=== PATIENT | female | born 1980 | race Hispanic/Latino ===

== ENCOUNTER 2018-05-31 09:51 | Emergency (ER) | payer SELFPAY ==
[~2018-05-31] VITALS: Ht 167.6 cm; Wt 145.6 kg
--- OUTSIDE RECORDS SUMMARY | 2018-05-31 09:55 | XMS REPORT ---
Author Author [facility] Address Unknown Phone Unavailable Care Team Providers Care Lead Shop Operator Name Role Phone Unavailable Unavailable Payers Payer Name Policy Type Policy Number Effective Date Expiration Date Problems This patient has no known problems. Allergies, Adverse Reactions, Alerts Allergy Name Allergy Type Status Severity Reaction(s) Onset Date Inactive Date Treating Clinician Comments No Known Allergies DA Active U 2017-12-17 00:00:00 No Known Allergies DA Active U 2015-09-02 00:00:00 Medications This patient has no known medications.
== END 2018-05-31 11:48 | disposition home or self-care (01) ==
LOC: ER 09:51
DX: J30.1 Allergic rhinitis due to pollen (principal); J30.2 Other seasonal allergic rhinitis; I10 Essential (primary) hypertension; E11.9 Type 2 diabetes mellitus without complications; E78.5 Hyperlipidemia, unspecified; E66.9 Obesity, unspecified
CPT/HCPCS: 93005; 99283

== ENCOUNTER 2019-10-21 18:25 | Emergency (ER) | payer OTHER ==
[~2019-10-21] VITALS: Ht 167.6 cm; Wt 145.6 kg
--- OUTSIDE RECORDS SUMMARY | 2019-10-21 18:52 | XMS REPORT | Continuity of Care Document ---
Author Author [facility] t Organization [facility] Address [address] [place] [address] Phone Unavailable Care Team Providers Care Management Internship Name Role Phone NO, PCP PCP Unavailable Payers Payer Name Policy Type Policy Number Effective Date Expiration Date S ource Problems This patient has no known problems. Allergies, Adverse Reactions, Alerts Allergy Name Allergy Type Status Severity Reaction(s) Onset Date Inacti ve Date Treating Clinician Comments Source Morphine Allergy to Substance Active 2018-05-31 00:00:00 [facility] No Known Allergies DA Active U 2017-12-17 00:00:00 [facility] No Known Allergies DA Active U 2015-09-02 00:00:00 [facility] Medications This patient has no known medications. Procedures This patient has no known procedures. Encounters Start Date/Time End Date/Time Encounter Type [facility] ID Source 2018-09-11 12:27:00 2018-09-11 12:27:00 Emergency E SE [id number] 2018-05-31 09:51:00 2018-05-31 11:48:00 Departed Emergency Room [facility] [id number] [facility] Results Test Description Test Time Test Comments Results Result Comments Source SCR MAMM BILATERAL CAD DIGITAL 2019-05-04 14:49:15 - SCR MAMM BILATERAL CAD DIGITALBILATERAL DIGITAL SCREENING MAMMOGRAM WITH CAD: 05/03/2019CLINICAL: Asymptomatic. Current mammographic images were evaluated by either a [employer] M- Vu or a [employer] ImageChecker CAD (computer aided detection system). No prior exams were available for comparison. There are scattered fibroglandular tissues in both breasts. No suspicious mass, architectural distortion, malignant type calcification, or lymph node abnormality detected. IMPRESSION: NEGATIVEThere is no mammographic evidence of malignancy. Follow-up with ACR guidelines. Dion Muñoz M.D. ss/:05/04/2019 14:49:15 Manager Nicu: Christine Knapp FW, [facility]-FWletter sent: BIRADS 1-2 Normal Mammogram BI-RADS: 1 Negative - DUP VEIN UNI/LTD 2018-08-12 17:28:00 Name: ABHAY ESPOSITO [facility] : 1980 Age/S: 38 / F [address] [place], [place] [address]vd Unit #: [id number] Loc: [place] [address] Phys: Ese Lees NP Acct: [id number] Dis Date: Status: REG ER PHONE #: [phone] Exam Date: 08/12/2018 172 FAX #: [phone] Reason: LLE pain, r/o DVT EXAMS: CPT CODE: [id number] DUP VEIN UNI/LTD [id number] PROCEDURE: LEFT UNILATERAL LOWER EXTREMITY VENOUS ULTRASOUND INDICATION: Acute left leg pain. COMPARISON: None. TECHNIQUE: Sonographic evaluation of the left lower extremity veins was performed using high resolution B-mode, pulse and color Doppler imaging. The stripper black and white describes the study is limited due to body habitus. FINDINGS: The common femoral, femoral, popliteal and visualized calf veins are patent. Normal venous waveforms. The saphenofemoral junction is unremarkable. IMPRESSION: 1. No deep venous thrombosis in the left leg. SL:01 at 1728 Reported and signed by: Max Sylvester M.D. CC: Ese Lees NP Technologist: Emilia Brown RDMS() Trnscb Date/Time: 08/12/2018 (172) Janell Orig Print D/T: S: 08/12/2018 (173) Probe: PAGE 1 Signed Report URINALYSIS COMPLETE 2018-08-12 17:09:00 Test Item UA COLOR (test code = COLU) DARK YELLOW YEL/STRAW UA APPEARANCE (test code = APPU) HAZY CLEAR A UA GLUCOSE DIPSTICK (test code = DGLUU) NEGATIVE NEGATIVE UA BILIRUBIN DIPSTICK (test code = BILU) 1+ NEGATIVE A UA KETONE DIPSTICK (test code = KETU) 1+ NEGATIVE A UA SPECIFIC GRAVITY (test code = SGU) 1.025 1.005-1.030 N UA BLOOD DIPSTICK (test code = MARCOS) 5+ NEGATIVE UA PH DIPSTICK (test code = VIV) 6.0 5.0-7.0 N UA PROTEIN DIPSTICK (test code = PROU) 2+ NEGATIVE A UA UROBILINIOGEN DIPSTICK (test code = URO) 2.0 mg/dL 0.2-1.0 A UA NITRITE DIPSTICK (test code = BRUNA) NEGATIVE NEGATIVE UA LEUKOCYTE ESTERASE DIPSTICK (test code = LEUU) 1+ NEGA TIVE A UA WBC (test code = WBCU) 4-9 WBC/HPF 0-3 A UA RBC (test code = RBCU) >50 RBC/HPF 0-3 A UA BACTERIA (test code = BACU) NONE SEEN /HPF NONE SEEN UA SQUAMOUS CELLS (test code = SQU) 6-10 /HPF NONE SEEN A UA MUCUS (test code = MUCU) 1+ /LPF NONE SEEN UR HCG [id number] 17:03:00* Test Item Value Reference Range Interpretation Comments UR HCG QUAL (test code = HCGQLU) NEGATIVE NEGATIVE URINALYSIS [id number] 17:02:00* Test Item Value Reference Range Interpretation Comments UA COLOR (test code = COLU) DARK YELLOW YEL/STRAW UA APPEARANCE (test code = APPU) HAZY CLEAR A UA GLUCOSE DIPSTICK (test code = DGLUU) NEGATIVE NEGATIVE UA BILIRUBIN DIPSTICK (test code = BILU) 1+ NEGATIVE A UA KETONE DIPSTICK (test code = KETU) 1+ NEGATIVE A UA SPECIFIC GRAVITY (test code = SGU) 1.025 1.005-1.030 N UA BLOOD DIPSTICK (test code = MARCOS) 5+ NEGATIVE UA PH DIPSTICK (test code = VIV) 6.0 5.0-7.0 N UA PROTEIN DIPSTICK (test code = PROU) 2+ NEGATIVE A UA UROBILINIOGEN DIPSTICK (test code = URO) 2.0 mg/dL 0.2-1.0 A UA NITRITE DIPSTICK (test code = BRUNA) NEGATIVE NEGATIVE UA LEUKOCYTE ESTERASE DIPSTICK (test code = LEUU) 1+ NEGA TIVE A UA WBC (test code = WBCU) WBC/HPF 0-3 UA RBC (test code = RBCU) RBC/HPF 0-3
[2019-10-21 19:30] LABS: CLARITY,URINE SL CLOUDY (CLEAR); COLOR,URINE YELLOW (YELLOW); KETONES,URINE NEGATIVE (NEGATIVE); LEUKOCYTE ESTERASE ,URINE NEGATIVE (NEGATIVE); NITRITE,URINE NEGATIVE (NEGATIVE); PROTEIN,URINE DIPSTICK NEGATIVE (NEGATIVE); URINE UROBILINOGEN 0.2 mg/dL (0.2 - 1)
[2019-10-21 19:34] LABS: AMORPHOUS SEDIMENT,URINE MODERATE (FEW); BACTERIA,URINE FEW /HPF; BILIRUBIN,URINE NEGATIVE (NEGATIVE); EPITHELIAL CELLS,URINE MODERATE /LPF; RBC,URINE 0-5 /HPF (0-5); WBC,URINE (MAN) 0-5 /HPF (0-5)
--- NOTE | 2019-10-21 21:05 | Emergency Department Note ---
History of Present Illnes History of Present Illness Chief Complaint: Abdominal Complaints History of Present Illness This is a 39 year old female lower abd pain with blood in urine x 1 month treated for uti finished abx still c/o pain told she needed to follow up with obgyn but not able to get in . Historian: Patient Arrival Mode: Car Onset (how long ago): month(s) (1) Location: LOWER ABD Quality: PAIN, BLOOD IN URINE Radiation: Reports non-radiation Severity: moderate Onset quality: gradual Duration (how long): week(s) (4) Timing of current episode: constant Progression: unchanged Context: Reports recent illness (STATE WAS TREATED FOR A UTI ONE MONTH AGO BUT STILL HAS SYMPTOMS) Relieving factors: none Exacerbating factors: none Associated symptoms: Reports denies other symptoms Treatments prior to arrival: none Past Medical/Family History Physician Review I have reviewed the patient's past medical and family history. Any updates have been documented here. Past Medical History Recent Fever: No Clinical Suspicion of Infectio: No New/Unexplained Change in Ment: No Past Medical History: Hypertension, Diabetes, UTI's, Hyperlipedemia Past Surgical History: Tubal Ligation, Other Surgery: 3 C-SECTIONS Social History Smoking Cessation: Never Smoker Counseling Performed: No Alcohol Use: None Any Illegal Drug Use: No Physically hurt or threatened: No Other Last Tetanus: UNKNOWN Any Pre-Existing Lines (PICC,: No Review of Systems Review of Systems Constitutional: Reports no symptoms EENTM: Reports no symptoms Cardiovascular: Reports no symptoms Respiratory: Reports no symptoms Gastrointestinal: Reports as per HPI Genitourinary: Reports as per HPI Musculoskeletal: Reports no symptoms Integumentary: Reports no symptoms Neurological: Reports no symptoms Psychological: Reports no symptoms Endocrine: Reports no symptoms Hematological/Lymphatic: Reports no symptoms Physical Exam Related Data Allergies: Coded Allergies: morphine (Verified Allergy, Unknown, 05/31/18) Triage Vital Signs Vital Signs Date Time Temp Pulse Resp B/P (MAP) Pulse Ox O2 Delivery O2 Flow Rate FiO2 10/21/19 18:38 98.8 86 18 137/84 100 Room Air Vital signs reviewed: Yes Physical Exam CONSTITUTIONAL Constitutional: Present well-developed, Present well-nourished; Absent distressed HENT HENT: Present normocephalic, Present atraumatic, Present oropharynx clear/moist, Present nose normal HENT L/R: Present left ext ear normal, Present right ext ear normal EYES Eyes: Reports PERRL, Reports conjunctivae normal NECK Neck: Present ROM normal PULMONARY Pulmonary: Present effort normal, Present breath sounds normal CARDIOVASCULAR Cardiovascular: Present regular rhythm, Present heart sounds normal, Present capillary refill normal, Present normal rate GASTROINTESTINAL Abdominal: Present soft, Present bowel sounds normal, Present tender (LOWER ABDOMEN) GENITOURINARY Genitourinary: Present exam deferred SKIN Skin: Present warm, Present dry MUSCULOSKELETAL Musculoskeletal: Present ROM normal NEUROLOGICAL Neurological: Present alert, Present oriented x 3, Present no gross motor or sensory deficits PSYCHOLOGICAL Psychological: Present mood/affect normal, Present judgement normal Results Laboratory Laboratory Laboratory Tests Test 10/21/19 20:41 10/21/19 18:45 White Blood Count 9.94 x10e3/uL (4.8-10.8) Red Blood Count 4.69 x10e6/uL (3.6-5.1) Hemoglobin 13.8 g/dL (12.0-16.0) Hematocrit 41.9 % (34.2-44.1) Mean Corpuscular Volume 89.3 fL (81-99) Mean Corpuscular Hemoglobin 29.4 pg (28-32) Mean Corpuscular Hemoglobin Concent 32.9 g/dL (31-35) Red Cell Distribution Width 13.3 % (11.7-14.4) Platelet Count 254 x10e3/uL (140-360) Neutrophils (%) (Auto) 66.9 % (38.7-80.0) Lymphocytes (%) (Auto) 24.9 % (18.0-39.1) Monocytes (%) (Auto) 6.3 % (4.4-11.3) Eosinophils (%) (Auto) 1.3 % (0.0-6.0) Basophils (%) (Auto) 0.3 % (0.0-1.0) Neutrophils # (Auto) 6.6 (2.1-6.9) Lymphocytes # (Auto) 2.5 (1.0-3.2) Monocytes # (Auto) 0.6 (0.2-0.8) Eosinophils # (Auto) 0.1 (0.0-0.4) Basophils # (Auto) 0.0 (0.0-0.1) Absolute Immature Granulocyte (auto 0.03 x10e3/uL (0-0.1) Sodium Level 142 mmol/L (136-145) Potassium Level 3.5 mmol/L (3.5-5.1) Chloride Level 103 mmol/L (98-107) Carbon Dioxide Level 29 mmol/L (22-29) Anion Gap 13.5 mmol/L (8-16) Blood Urea Nitrogen 15 mg/dL (7-26) Creatinine 0.81 mg/dL (0.57-1.11) Estimat Glomerular Filtration Rate > 60 ML/MIN (60-) BUN/Creatinine Ratio 19 (6-25) Glucose Level 84 mg/dL (74-118) Calcium Level 9.9 mg/dL (8.4-10.2) Total Bilirubin 0.3 mg/dL (0.2-1.2) Aspartate Amino Transf (AST/SGOT) 17 IU/L (5-34) Alanine Aminotransferase (ALT/SGPT) 18 IU/L (0-55) Alkaline Phosphatase 57 IU/L (40-150) Total Protein 7.9 g/dL (6.5-8.1) Albumin 3.7 g/dL (3.5-5.0) Globulin 4.2 g/dL (2.3-3.5) Albumin/Globulin Ratio 0.9 (0.8-2.0) Urine Color Yellow (YELLOW) Urine Clarity Sl cloudy (CLEAR) Urine pH 8.5 (5 - 7) Urine Specific Dwight 1.020 (1.010-1.025) Urine Protein Negative (NEGATIVE) Urine Glucose (UA) Negative (NEGATIVE) Urine Ketones Negative (NEGATIVE) Urine Blood Small (NEGATIVE) Urine Nitrite Negative (NEGATIVE) Urine Bilirubin Negative (NEGATIVE) Urine Urobilinogen 0.2 mg/dL (0.2 - 1) Urine Leukocyte Esterase Negative (NEGATIVE) Urine RBC 0-5 /HPF (0-5) Urine WBC 0-5 /HPF (0-5) Urine Epithelial Cells Moderate /LPF (NONE) Urine Amorphous Sediment Moderate (FEW) Urine Bacteria Few /HPF (NONE) Urine Test Negative (NEGATIVE) Laboratory Tests Test 10/21/19 18:45 Urine Color Yellow (YELLOW) Urine Clarity Sl cloudy (CLEAR) Urine pH 8.5 (5 - 7) Urine Specific Dwight 1.020 (1.010-1.025) Urine Protein Negative (NEGATIVE) Urine Glucose (UA) Negative (NEGATIVE) Urine Ketones Negative (NEGATIVE) Urine Blood Small (NEGATIVE) Urine Nitrite Negative (NEGATIVE) Urine Bilirubin Negative (NEGATIVE) Urine Urobilinogen 0.2 mg/dL (0.2 - 1) Urine Leukocyte Esterase Negative (NEGATIVE) Urine RBC 0-5 /HPF (0-5) Urine WBC 0-5 /HPF (0-5) Urine Epithelial Cells Moderate /LPF (NONE) Urine Amorphous Sediment Moderate (FEW) Urine Bacteria Few /HPF (NONE) Lab results reviewed: Yes Imaging Imaging results reviewed: Yes Impressions Procedure: [id number] CT/CT ABDOMEN/PELVIS W Exam Date: 10/21/19 Exam Time: 2330 REPORT STATUS: Signed EXAM: CT Abdomen and Pelvis WITH contrast INDICATION: ABD PAIN X 1 MONTH COMPARISON: None. TECHNIQUE: Abdomen and pelvis were scanned utilizing a multidetector helical scanner from the lung base to the pubic symphysis after administration of IV contrast. Coronal and sagittal reformations were obtained. Routine protocol was performed. Scan was performed when during portal venous phase. IV CONTRAST: 100 mL of Isovue 370 ORAL CONTRAST: None COMPLICATIONS: None RADIATION DOSE: Total DLP: 846.98 mGy*cm Estimated effective dose: (DLP x 0.015 x size factor) mSv CTDIvol has been reviewed. It is below the limits set by the Radiation Protocol Committee (RPC). Dose modulation, iterative reconstruction, and/or weight based adjustment of the mA/kV was utilized to reduce the radiation dose to as low as reasonably achievable. FINDINGS: LINES and TUBES: None. LOWER THORAX: Unremarkable HEPATOBILIARY: No focal hepatic lesions. No biliary ductal dilation. GALLBLADDER: No radio-opaque stones or sludge. No wall thickening. SPLEEN: No splenomegaly. PANCREAS: No focal masses or ductal dilatation. ADRENALS: No adrenal nodules KIDNEYS/URETERS: Kidneys enhance symmetrically. No hydronephrosis. No cystic or solid mass lesions. No stones. GI TRACT: No abnormal distention, wall thickening, or evidence of bowel obstruction. Appendix is not clearly identified. There is however no fat stranding or adenopathy in the right lower quadrant to suggest appendicitis. PELVIC ORGANS/BLADDER: Unremarkable. LYMPH NODES: No lymphadenopathy. VESSELS: Unremarkable. PERITONEUM / RETROPERITONEUM: No free air or fluid. BONES: Unremarkable. SOFT TISSUES: Fat-containing umbilical hernia with mild fat stranding. IMPRESSION: 1. Fat containing umbilical hernia with mild fat stranding. 2. Otherwise, no acute abdominopelvic process. Signed by: Mike Call MD on 10/22/2019 12:26 AM Dictated By: MIKE CALL MD Transcribed By: REED on 10/22/1925 COPY TO: CHARISMA REARDON MD~ Assessment & Plan Medical Decision Making MDM PT PRESENT WITH APPARENT URINARY SYMPTOMS UA ORDERED PT FOUND NOT TO HAVE A UTI SO NOW CBC, CMP, CT ABD/PELVIS ORDERED TO EVAL FOR ELECTROLYTE ABNORMALITY, ELEVATED LFT'S, COLITIS, DIVERTICULITIS, KIDNEY STONE, PT FOUND TO HAVE UMBILICAL HERNIA. DISCHARGED AND REFERRED TO SURGEON FOR FOLLOW UP Assessment & Plan Final Impression: (1) Umbilical hernia Depart Disposition: HOME, SELF-CARE Last Vital Signs Date Time Temp Pulse Resp B/P (MAP) Pulse Ox O2 Delivery O2 Flow Rate FiO2 10/21/19 20:50 98.0 79 17 138/89 100 Room Air Home Meds No Active Prescriptions or Reported Meds CHARISMA REARDON MD Oct 21, 2019 21:05
[2019-10-21 21:11] LABS: BASOPHILS % 0.3 % (0.0-1.0); EOSINOPHILS # (AUTO) 0.1 (0.0-0.4); EOSINOPHILS % 1.3 % (0.0-6.0); HEMATOCRIT 41.9 % (34.2-44.1); HEMOGLOBIN 13.8 g/dL (12.0-16.0); LYMPHOCYTES # (AUTO) 2.5 (1.0-3.2); LYMPHOCYTES % 24.9 % (18.0-39.1); MEAN CORPUSCULAR HEMOGLOBIN 29.4 pg (28-32); MEAN CORPUSCULAR HGB CONC 32.9 g/dL (31-35); MEAN CORPUSCULAR VOLUME 89.3 fL (81-99); MONOCYTES # (AUTO) 0.6 (0.2-0.8); MONOCYTES % 6.3 % (4.4-11.3); NEUTROPHILS # (AUTO) 6.6 (2.1-6.9); NEUTROPHILS % 66.9 % (38.7-80.0); PLATELET COUNT 254 x10e3/uL (140-360); RED BLOOD COUNT 4.69 x10e6/uL (3.6-5.1); RED CELL DISTRIBUTION WIDTH 13.3 % (11.7-14.4)
[2019-10-21 21:34] LABS: ALANINE AMINOTRANSFERASE 18 IU/L (0-55); ALBUMIN 3.7 g/dL (3.5-5.0); ALBUMIN/GLOBULIN RATIO 0.9 (0.8-2.0); ALKALINE PHOSPHATASE 57 IU/L (40-150); ANION GAP 13.5 mmol/L (8-16); BLOOD UREA NITROGEN 15 mg/dL (7-26); BUN/CREATININE RATIO 19 (6-25); CALCIUM 9.9 mg/dL (8.4-10.2); CARBON DIOXIDE 29 mmol/L (22-29); CHLORIDE 103 mmol/L (98-107); CREATININE, SERUM 0.81 mg/dL (0.57-1.11); EST GLOMERULAR FILTRATION RATE > 60 ML/MIN (60-); GLUCOSE 84 mg/dL (74-118); POTASSIUM 3.5 mmol/L (3.5-5.1); SODIUM 142 mmol/L (136-145)
[2019-10-21] MEDS ORDERED: IOPAMIDOL 370 MG/ML 200 ML INFUS..BTL INJ ONE (23:06)
[2019-10-21] MEDS ORDERED: SODIUM CHLORIDE 0.9% 50ML 50 ML ONE (23:06)
--- NOTE | 2019-10-22 00:29 | Diagnostic Imaging Report ---
EXAM: CT Abdomen and Pelvis WITH contrast INDICATION: ABD PAIN X 1 MONTH COMPARISON: None. TECHNIQUE: Abdomen and pelvis were scanned utilizing a multidetector helical scanner from the lung base to the pubic symphysis after administration of IV contrast. Coronal and sagittal reformations were obtained. Routine protocol was performed. Scan was performed when during portal venous phase. IV CONTRAST: 100 mL of Isovue 370 ORAL CONTRAST: None COMPLICATIONS: None RADIATION DOSE: Total DLP: 846.98 mGy*cm Estimated effective dose: (DLP x 0.015 x size factor) mSv CTDIvol has been reviewed. It is below the limits set by the Radiation Protocol Committee (RPC). Dose modulation, iterative reconstruction, and/or weight based adjustment of the mA/kV was utilized to reduce the radiation dose to as low as reasonably achievable. FINDINGS: LINES and TUBES: None. LOWER THORAX: Unremarkable HEPATOBILIARY: No focal hepatic lesions. No biliary ductal dilation. GALLBLADDER: No radio-opaque stones or sludge. No wall thickening. SPLEEN: No splenomegaly. PANCREAS: No focal masses or ductal dilatation. ADRENALS: No adrenal nodules KIDNEYS/URETERS: Kidneys enhance symmetrically. No hydronephrosis. No cystic or solid mass lesions. No stones. GI TRACT: No abnormal distention, wall thickening, or evidence of bowel obstruction. Appendix is not clearly identified. There is however no fat stranding or adenopathy in the right lower quadrant to suggest appendicitis. PELVIC ORGANS/BLADDER: Unremarkable. LYMPH NODES: No lymphadenopathy. VESSELS: Unremarkable. PERITONEUM / RETROPERITONEUM: No free air or fluid. BONES: Unremarkable. SOFT TISSUES: Fat-containing umbilical hernia with mild fat stranding. IMPRESSION: 1. Fat containing umbilical hernia with mild fat stranding. 2. Otherwise, no acute abdominopelvic process. Signed by: Cecil Olvera MD on 10/22/2019 12:26 AM
== END 2019-10-22 00:30 | disposition home or self-care (01) ==
LOC: ER 18:49
DX: R10.30 Lower abdominal pain, unspecified (principal); K42.9 Umbilical hernia without obstruction or gangrene; R31.9 Hematuria, unspecified; I10 Essential (primary) hypertension; E11.9 Type 2 diabetes mellitus without complications; E78.5 Hyperlipidemia, unspecified
CPT/HCPCS: 36415; 74177; 80053; 81001; 81025; 85025; 87086; 87186; 99284; Q9967

== ENCOUNTER 2024-02-06 06:47 | Emergency (ER) | payer OTHER ==
[~2024-02-06] VITALS: Ht 167.6 cm; Wt 108.9 kg
[2024-02-06 06:58] VITALS: PULSE 75; RESP 16; TEMP 97; O2SAT 100
[2024-02-06] MEDS ORDERED: MEDROL4 M2 PO (08:08)
[2024-02-06] MEDS: IBUPROFEN 600 MG TAB PO STA (08:11)
== END 2024-02-06 08:51 | disposition home or self-care (01) ==
LOC: ER 06:51
DX: S83.422A Sprain of lateral collateral ligament of left knee, initial encounter (principal); M76.892 Other specified enthesopathies of left lower limb, excluding foot; I10 Essential (primary) hypertension; E78.5 Hyperlipidemia, unspecified; Z98.84 Bariatric surgery status
CPT/HCPCS: 93971; 99283

== ENCOUNTER 2024-05-03 19:10 | Emergency (ER) | payer SELFPAY ==
[~2024-05-03] VITALS: Ht 167.6 cm; Wt 108.9 kg
[~2024-05-03 19:10] MED LIST: MEDROL4 M2 PO
[2024-05-03 19:40] VITALS: PULSE 86; RESP 18; TEMP 98.5; O2SAT 98
[2024-05-03 20:19] LABS: INFLUENZA B AG NEGATIVE (NEGATIVE); STREPTOCOCCUS GRP A ANTIGEN NEGATIVE (NEGATIVE)
[2024-05-03 20:20] LABS: CORONAVIRUS COVID-19 AG NEGATIVE (NEGATIVE)
[2024-05-03 20:21] LABS: INFLUENZA A AG POSITIVE (NEGATIVE)
[2024-05-03] MEDS ORDERED: TAMIFLU75 MG PO (20:23)
[2024-05-03] MEDS ORDERED: PREDNISONE20 MG PO (20:23)
[2024-05-03] MEDS ORDERED: VENTOLIN HFA18 GM INH (20:23)
== END 2024-05-03 20:35 | disposition home or self-care (01) ==
LOC: ER 19:19
DX: R05.9 Cough, unspecified (principal); J10.1 Influenza due to other identified influenza virus with other respiratory manifestations; I10 Essential (primary) hypertension; E78.5 Hyperlipidemia, unspecified; Z98.84 Bariatric surgery status
CPT/HCPCS: 83518; 87070; 99283

== ENCOUNTER 2024-11-26 03:10 | Emergency (ER) | payer OTHER ==
[~2024-11-26] VITALS: Ht 167.6 cm; Wt 108.9 kg
[~2024-11-26 03:10] MED LIST changes: +PREDNISONE20 MG PO; +TAMIFLU75 MG PO; +VENTOLIN HFA18 GM INH
[2024-11-26 03:15] VITALS: PULSE 64; RESP 20; TEMP 98.2
[2024-11-26 03:36] VITALS: BP 137/85; PULSE 64; RESP 20; TEMP 98.2; O2SAT 100
== END 2024-11-26 03:50 | disposition home or self-care (01) ==
LOC: ER 03:14
DX: B37.89 Other sites of candidiasis (principal); R22.2 Localized swelling, mass and lump, trunk; I10 Essential (primary) hypertension; E78.5 Hyperlipidemia, unspecified; Z98.84 Bariatric surgery status; F17.210 Nicotine dependence, cigarettes, uncomplicated
CPT/HCPCS: 99283

== ENCOUNTER 2024-12-15 18:41 | Emergency (ER) | payer SELFPAY ==
[~2024-12-15] VITALS: Ht 167.6 cm; Wt 108.9 kg
[2024-12-15 19:57] VITALS: PULSE 60; RESP 17; TEMP 98.4
[2024-12-15 20:34] LABS: BASOPHILS % 0.2 % (0.0-1.0); EOSINOPHILS % 1.4 % (0.0-6.0); LYMPHOCYTES % 23.5 % (18.0-39.1); MONOCYTES % 6.6 % (4.4-11.3); NEUTROPHILS % 68.1 % (38.7-80.0); RED CELL DISTRIBUTION WIDTH 14.2 % (11.7-14.4)
[2024-12-15 20:36] LABS: LEUKOCYTE ESTERASE ,URINE NEGATIVE (NEGATIVE); PROTEIN,URINE DIPSTICK NEGATIVE (NEGATIVE)
[2024-12-15 20:37] LABS: URINE UROBILINOGEN 1 mg/dL (0.2 - 1)
[2024-12-15 20:41] LABS: EPITHELIAL CELLS,URINE MANY /LPF; WBC,URINE (MAN) 0-5 /HPF (0-5)
[2024-12-15 20:48] LABS: EST GLOMERULAR FILTRATION RATE 101.0 ML/MIN (>=60)
[2024-12-15] MEDS ORDERED: IOPAMIDOL 370 MG/ML 100 ML INFUS..BTL INJ ONE (20:58)
[2024-12-15 22:30] VITALS: BP 124/65; PULSE 61; RESP 17; TEMP 98; O2SAT 98
[2024-12-15] MEDS ORDERED: ANTIVERT25 M1 PO (22:30)
== END 2024-12-15 22:36 | disposition home or self-care (01) ==
LOC: ER 20:35
DX: R42 Dizziness and giddiness (principal); I10 Essential (primary) hypertension; E78.5 Hyperlipidemia, unspecified; Z98.84 Bariatric surgery status; F17.210 Nicotine dependence, cigarettes, uncomplicated
CPT/HCPCS: 36415; 70496; 70498; 80053; 81001; 81025; 85025; 93005; 99284; Q9967